=== PATIENT | female | born 1960 | race Hispanic/Latino ===

== ENCOUNTER 2018-03-27 07:54 | Outpatient (CLI) | payer OTHER | END 2018-03-27 07:55 | disposition home or self-care (01) | LOC: BICMAMMO 07:54 | PROVIDERS: ATTEND Obstetrics & Gynecology | DX: Z12.31 Encounter for screening mammogram for malignant neoplasm of breast (principal); Z80.3 Family history of malignant neoplasm of breast | CPT/HCPCS: 77063; 77067 ==

== ENCOUNTER 2019-04-17 09:36 | Outpatient (CLI) | payer OTHER ==
--- NOTE | 2019-04-22 06:45 | MMO ---
Bilateral MAMMO Bilat Screen [facility]. CLINICAL HISTORY: Patient is 59 years old and is seen for screening. The patient has the following family history of breast cancer: daughter, at age 30. The patient has no personal history of cancer. The patient has a history of left Excisional Biopsy in 1990 - benign. VIEWS: The views performed were: bilateral craniocaudal with tomosynthesis and bilateral mediolateral oblique with tomosynthesis. FILMS COMPARED: The present examination has been compared to prior imaging studies performed at [facility] on 09/20/2015, 03/20/2016, 03/21/2017 and 03/27/2018. MAMMOGRAM FINDINGS: The breasts are heterogeneously dense, which could obscure a lesion on mammography. There are no suspicious masses, suspicious calcifications, or new areas of architectural distortion. IMPRESSION: THERE IS NO MAMMOGRAPHIC EVIDENCE OF MALIGNANCY. A ROUTINE FOLLOW-UP MAMMOGRAM IN 1 YEAR IS RECOMMENDED. THE RESULTS OF THIS EXAM WERE SENT TO THE PATIENT. ACR BI-RADS Category 1 - Negative MAMMOGRAPHY NOTE: 1. A negative mammogram report should not delay a biopsy if a dominant of clinically suspicious mass is present. 2. Approximately 10% to 15% of breast cancers are not detected by mammography. 3. Adenosis and dense breasts may obscure an underlying neoplasm. Reported by: ANNALISA POND MD Electonically Signed: [id number]
== END 2019-04-17 09:37 | disposition home or self-care (01) ==
LOC: BICMAMMO 09:36
PROVIDERS: ATTEND Obstetrics & Gynecology
DX: Z12.31 Encounter for screening mammogram for malignant neoplasm of breast (principal); Z80.3 Family history of malignant neoplasm of breast
CPT/HCPCS: 77063; 77067

== ENCOUNTER 2020-04-28 07:55 | Outpatient (CLI) | payer OTHER ==
--- NOTE | 2020-04-28 08:59 | BD ---
BONE DENSITOMETRY: Date: 04/28/2020 HISTORY: Postmenopausal screening. FINDINGS: Lumbar Spine: BMD (g/cm2) L1 1.013 T-Score: 0.2 L2 1.143 T-Score: 1.0 L3 1.120 T-Score: 0.3 L4 0.992 T-Score: -0.6 Total 1.062 T-Score: 0.1 Left Femoral Neck: 0.799 T-Score: -0.5 Total Femur: 0.996 T-Score: 0.4 IMPRESSION: Bone mineral density of the lumbar spine and femoral neck are both within normal range. POS: AGW
== END 2020-04-28 07:56 | disposition home or self-care (01) ==
LOC: BICMAMMO 07:55
PROVIDERS: ATTEND Student in an Organized Health Care Education/Training Program
DX: Z13.820 Encounter for screening for osteoporosis (principal)
CPT/HCPCS: 77080

== ENCOUNTER 2025-06-09 07:18 | Outpatient (CLI) | payer BC | END 2025-06-09 07:19 | disposition home or self-care (01) | LOC: SCSRAD 07:18 | PROVIDERS: ATTEND Internal Medicine Gastroenterology | DX: R05.9 Cough, unspecified (principal); J98.4 Other disorders of lung | CPT/HCPCS: 71046 ==

== ENCOUNTER 2025-07-28 08:11 | Outpatient (CLI) | payer BC | END 2025-07-28 08:12 | disposition home or self-care (01) | LOC: SCSBT 08:11 | PROVIDERS: ATTEND Physician Assistant | DX: Z13.820 Encounter for screening for osteoporosis (principal) | CPT/HCPCS: 77080 ==